=== PATIENT | female | born 1960 | race Caucasian/White ===

== ENCOUNTER 2016-08-31 11:59 | Emergency (ER) | payer BC ==
[2016-08-31 13:02] LABS: Hematocrit 37.7 % (37.0-47.0); Hemoglobin 12.8 gm/dL (12.5-16.0); Mean Cell Volume 87.1 fl (78-100); Mean Corpuscular Hemoglobin 29.6 pg (27-31); Mean Platelet Volume 9.5 fl (6.0-9.5); Neutrophil # 2.9 K/mm3 (1.3-6.0); Neutrophil % 58.8 % (42-75.0); Platelet Count 246 K/mm3 (150-450); Red Blood Count 4.33 M/mm3 (4.2-5.4); Red Cell Distribution Width 12.7 % (11.5-14.0)
[2016-08-31 13:16] LABS: Anion Gap 13.9 mmol/L (6.8-13.8); BUN/Creatinine Ratio 18.2 (9.0-21.6); Bilirubin, Total 0.3 mg/dL (0.0-1.1); Ca. Corrected For Albumin 8.6 mg/dL (8.4-10.2); Calcium * 8.9 mg/dL (7.9-10.9); Carbon Dioxide 27.6 mmol/L (24-32.6); Potassium 3.5 mmol/L (3.4-4.6); Total Protein 7.1 gm/dL (6.2-8.2)
--- NOTE | 2016-08-31 13:48 | ERNOTE ---
Lower Extremity HPI - Narrative Date of Service: 08/31/16 - General Lower Extremities Pain: leg: left - calf Time Seen by Provider: 08/31/16 13:34 Source: patient, RN notes reviewed Exam Limitations: no limitations - Immun/Allergies/Home Medications Immunizations: IMMUNIZATION HX Immunizations Up to Date Yes History of Influenza Vaccine No Hx Pneumococcal Vaccination No Allergies/Adverse Reactions: Allergies Allergy/AdvReac Type Severity Reaction Status Date / Time Sulfa (Sulfonamide Allergy Severe Anaphylaxis Verified 08/31/16 12:38 Antibiotics) Home Medications: HOME MEDICATIONS Aspirin [Aspirin Chewable] 650 mg PO DAILY 02/28/13 [Last Taken 02/28/13] Levothyroxine Sodium [Synthroid] 165 mcg PO DAILY 02/28/13 [Last Taken Unknown] Montelukast Sodium [Singulair] 10 mg PO DAILY 02/28/13 [Last Taken 02/28/13] Potassium Chloride [K-Dur] 10 meq PO DAILY 02/28/13 [Last Taken 02/28/13] Multi Vitamin Daily 07/09/14 [Last Taken Unknown] Losartan Potassium 08/31/16 [Last Taken Unknown] - History of Present Illness Narrative: 56 y/o female with gradually worsening left calf pain over the past few days. She has had DVT's in both legs in the past but stopped taking her Coumadin because it was inconvenient and caused side effects. She believes that there is a hereditary clotting disorder in her family. She has been taking aspirin daily. Date (Duration): 08/27/16 Method of Injury: Reports: no apparent injury Subsequent Symptoms: Denies: sensory loss, numbness, motor loss Prior Treament: Reports: similar symptoms before Review of Systems - Review of Systems Constitutional: Absent: recent illness, fever, chills, malaise EYE: Present: no symptoms reported ENT: Present: no symptoms reported Respiratory: Absent: shortness of breath, cough Cardiology: Present: edema, claudication. Absent: chest pain, palpitations, syncope Gastrointestinal/Abdominal: Absent: nausea, vomiting, abdominal pain Genitourinary: Present: no symptoms reported Musculoskeletal: Absent: joint pain, joint swelling Skin: Absent: rash, lesions, lumps, change in color Neurological: Absent: weakness, numbness, tingling Endocrine: Present: no symptoms reported Hematologic/Lymphatic: Present: no symptoms reported - Patient's Past Medical History Patient History - Medical: No pertinent hx Patient History - Cardiac/Respiratory: Deep Vein Thrombosis, Hyperlipidemia Patient History - Cancer: No Hx of Cancer Patient History - Surgical Procedures: T & A, Other Patient History - Other: None LMP (females 10-50): Menopausal - Social History Living Situations: home Psych History: No pertinent hx Smoking Status: Never smoker - Immunizations Immunizations Up to Date: Yes Hx Pneumococcal Vaccination: No History of Influenza Vaccine: No Physical Exam - Physical Exam General Appearance: Present: wd/wn, alert, no apparent distress Neck: Present: normal inspection, nontender, supple Respiratory: Present: no respiratory distress, normal breath sounds, no accessory muscle use, lungs clear Cardiovascular/Chest: Present: regular rate, rhythm, no murmur, normal peripheral pulses Extremity Exam: Present: normal range of motion, extremity edema - mild, left lower leg. Absent: joint redness, joint swelling Neurological Exam: Present: alert, oriented, normal mood/affect, no motor/ sensory deficits Skin Exam: Present: normal color, warm/dry ED Progress - Results and Orders Patient's Lab Results:: I have reviewed the patient's lab results. - Vital Signs Patient's Vital Signs:: I have reviewed the patient's vital signs. Vital Signs: Vital Signs 08/31/16 08/31/16 12:32 13:15 Temperature 37.0 C 36.7 C Pulse Rate 76 83 Respiratory 16 12 Rate Blood Pressure 132/86 113/82 O2 Sat by Pulse 98 96 Oximetry - CT/Ultrasound CT/Ultrasound Narrative: US LLE: IMPRESSION: NO DVT. MEDIAL POPLITEAL FOSSA VALLES'S CYST CYST. - Progress/Reassessment Chief Complaint: Lower Extremity Pain/ Injury Progress:: Unchanged Plan - Plan Plan: US results discussed with patient, recommended that she see her PCP regarding trying a different anticoagulant as it sounds as though she is supposed to be on one indefinitely. Departure Clinical Impression: Leg pain, left Valles's cyst Qualifiers: Laterality: left Qualified Code(s): M71.22 - Synovial cyst of popliteal space [ Valles], left knee - Departure Disposition: Home Follow Up Needed Condition: Good Instructions: Valles Cyst Additional Instructions: Follow up with Dafne to discuss fdc use of other anticoagulants that do not require blood testing Referrals: Dafne Daniels, [facility] [Primary Care Provider] -
--- OUTSIDE RECORDS SUMMARY | 2016-08-31 14:11 | XMS REPORT | Continuity of Care Document ---
:1960 Author Organization [facility] ([facility]) [place] [address] Phone [phone] Care Team Providers Name Role Phone Provider, No-Primary Care Primary Care Provider Unavailable Source Comments This disclosure is being made pursuant to the Care Everywhere program, applicable federal and state laws, and may not contain all informaitonavailable regarding this patient.[facility] ([facility]) Active Allergies and Adverse Reactions Allergen Noted Date Severity Reactions Comments Sulfadoxine Urticaria (Hives) Current Medications Prescription Sig. Disp. Refills Start Date End Date Status levothyroxine 150 mcg Take 150 mcg by Active tablet mouth every morning before breakfast. levothyroxine 175 mcg Take 175 mcg by Active tablet mouth every morning before breakfast. montelukast 10 mg tablet Take 10 mg by mouth Active daily. losartan PO Active potassium chloride 10 mEq Take 10 mEq by Active tablet mouth daily. MULTIVIT-MINERALS/FOLIC/G Active INKGO (ONE DAILY WOMEN 50 PLUS PO) FEXOFENADINE HCL (JASIEL Take 180 mg by Active PO) mouth. aspirin 325 mg tablet Take 650 mg by Active mouth daily. Active Problems Problem Noted Date Abnormal mammogram, unspecified 05/02/2007 Swelling of limb 03/06/2001 Most Recent Encounters Date Type Specialty Providers Description 09/23/2016 Hospital Encounter General Surgery Abel Man MD 08/16/2016 Office Visit Orthopaedic Abel Man MD Chief Comp: Patient Reported Reason For Visit 08/09/2016 Hospital Encounter Radiology Abel Man MD Dx: Shoulder pain, right 08/09/2016 Office Visit Orthopaedic Abel Man MD Dx: Shoulder pain, right (Primary Dx) Immunizations Name Dates Previously Given Next Due Influenza, unspecified 03/12/2007 Social History Tobacco Use Types Packs/Day Years Used Date Never Smoker Smokeless Tobacco: Never Used Last Filed Vital Signs Vital Sign Reading Time Taken Blood Pressure 149/75 08/09/2016 1:04 PM [employer] Pulse 88 08/09/2016 1:04 PM [employer] Temperature 36.2 C (97.2 F) 08/09/2016 1:04 PM [employer] Respiratory Rate 16 04/03/2007 10:25 AM CDT Height 1.803 m (5' 11") 08/09/2016 1:04 PM [employer] Weight 121.7 kg (268 lb 4.8 oz) 08/09/2016 1:04 PM [employer] Body Mass Index 37.44 08/09/2016 1:04 PM [employer] Oxygen Saturation - - Plan of Care Date Type Specialty Providers Description 09/13/2016 Appointment Internal Medicine - Default, Other Billg - [facility] [address] [place] [address] [phone] (Fax) Chief Comp: Patient Specialty ([id number]), Msc Surg Co-Managemnt Cl [address] [place] [address] [phone] (Fax) Reported Reason For Visit 09/13/2016 Appointment Orthopaedic Abel Man MD Chief Comp: Patient [address] [facility] [place] [address] Visit [phone] (Fax) 09/23/2016 Surgery General Surgery Abel Man MD ARTHROSCOPY SHOULDER [address] [facility] W/[place] [address] [phone] (Fax) 10/10/2016 Appointment Abel Mills MD [address] [place] [address] [phone] (Fax) Chief Comp: Patient Mahsa Craven, FILLING ROOM OPERATOR [address] [place] [address] [phone] (Fax) Reported Reason For Visit 11/08/2016 Appointment Orthopaedic Abel Man MD Chief Comp: Patient [address] [facility] [place] [address] Visit [phone] (Fax) Health Maintenance Due Date Last Done Comments HCV Screening 1960 Hepatitis B Vaccine (1 of 3 - Primary Series) 1960 Tdap Vaccine 1973 Lipid Disorder Screening 1980 MMR Vaccine 1980 Td Vaccine 1980 Cervical Cancer Screening 1992 Mammogram 2002 Colonoscopy 07/02/2012 Influenza Vaccine: Seasonal (#1) 01/11/2016 03/12/2007 Results from Last 3 Months RIGHT SHOULDER AP, AXIL& GRASHEY (08/09/2016 1:21 PM) Impressions Findings / Impression: No acute fracture or dislocation. Moderate degenerative change of the acromioclavicular joint. Narrowed subacromial space indicates chronic rotator cuff injury. Narrative Procedure: RIGHT SHOULDER AP, AXIL & GRASHEY Clinical Indication: Right shoulder pain Comparison: None. Procedure Note Slim, Incoming Imaging Results - Tue Aug 09, 2016 8:42 PM [employer] Procedure: RIGHT SHOULDER AP, AXIL & GRASHEY Clinical Indication: Right shoulder pain Comparison: None. IMPRESSION Findings / Impression: No acute fracture or dislocation. Moderate degenerative change of the acromioclavicular joint. Narrowed subacromial space indicates chronic rotator cuff injury.
[2016-08-31 14:20] LABS: INR 1.03 INR (0.90-1.10); Prothrombin Time (Patient) 10.7 Seconds (9.4-11.4)
[2016-08-31 14:53] VITALS: BP 122/78
== END 2016-08-31 15:13 | disposition home or self-care (01) ==
LOC: ER 11:59
DX: M79.662 Pain in left lower leg (principal); M71.22 Synovial cyst of popliteal space [Baker], left knee